=== PATIENT | female | born 1950 | race Asian ===

== ENCOUNTER 2017-12-17 04:38 | Inpatient (IN) | payer MEDICARE ==
[~2017-12-17] VITALS: Ht 144.8 cm; Wt 50.3 kg
[2017-12-17 08:00] VITALS: BP 128/68
--- NOTE | 2017-12-17 08:00 | NUR ---
TERRAZZO LAYER HELPERFIVE ROLL REFINER BATCH MIXER NOTES RECEIVED NEW ADMISSION FOR[place] [address] WITH PRIMARY DIAGNOSIS OF COLITIS..REPORT RECEIVED FROM PM NURSE.BROUGHT BY EMT IN [facility].PATIENT IS AXOX4.NO SOB NO DISTRESS NOTED AT THIS TIME.BRP.WITH STEADY GAIT.GENERALIZED WEAKNESS NOTED.IV ON RAC#20.INTACT AND PATENT.LOGISTICS PLANNER DARLIN MADE AWARE REGARDING ADMISSION.SKIN IS INTACT.BED IS IN LOW AND LOCKED POSITION.CALL LIGHT IN REACH.SRX3.WILL CONTINUE TO MONITOR.
[2017-12-17] MEDS ORDERED: LEVOFLOXACIN 500 MG /D5W 100ML 500 MG in PREMIX 1 EA IV SCH (08:30)
[2017-12-17] MEDS ORDERED: HYDROCODONE/APAP 5/325MG 1 EACH TABLET PO PRN ×2 (08:30→10:30)
[2017-12-17] MEDS ORDERED: ZOLPIDEM TARTRATE 5 MG TABLET PO PRN (08:30)
[2017-12-17] MEDS ORDERED: MAGNESIUM HYDROXIDE 30 ML UDC PO PRN (08:30)
[2017-12-17] MEDS ORDERED: MORPHINE SULFATE INJ 4 MG/ML DISP.SYRIN IV PRN (08:30)
[2017-12-17] MEDS: IV NS 0.9% 1,000 ML IV PRN ×2 (08:36→23:40)
[2017-12-17] MEDS ORDERED: VITA1TAB56 PO (08:52)
[2017-12-17] MEDS ORDERED: MULT-1200 PO (08:52)
[2017-12-17] MEDS ORDERED: METO25TA3 PO (08:52)
[2017-12-17] MEDS ORDERED: AMLO5TAB7 PO (08:52)
[2017-12-17] MEDS ORDERED: CHOL100044 PO (08:52)
[2017-12-17] MEDS ORDERED: ATOR10TA PO (08:52)
[2017-12-17] MEDS ORDERED: LEVO50TA8 PO (08:52)
[2017-12-17] MEDS ORDERED: ALEN70TA45 PO (08:52)
[2017-12-17 10:00] VITALS: BP 128/68
[2017-12-17] MEDS: ENOXAPARIN SODIUM 30 MG/0.3 ML DISP.SYRIN SQ SCH (10:57)
[2017-12-17] MEDS: LEVOFLOXACIN 750 MG /D5W 150ML 750 MG in PREMIX 1 EA IV SCH (10:57)
[2017-12-17 12:00] VITALS: BP 118/68
[2017-12-17] MEDS: ACETAMINOPHEN 325 MG TABLET PO PRN (12:40)
--- NOTE | 2017-12-17 12:40 | NUR ---
PLUGGER NOTE SEEN BY RANJEET SAEED.UPDATED PATIENT CONDITION.NOTIFIED THAT PATIENT HAS MILD TEMP.GOT NEW ORDERS.WILL CONTINUE TO MONITOR.
[2017-12-17] MEDS: METRONIDAZOLE 500MG/ NS 100ML 500 MG in PREMIX 1 EA IV SCH ×3 (12:52→23:40)
[2017-12-17 16:00] VITALS: BP 105/80
[2017-12-17] MEDS: ATORVASTATIN 10 MG TABLET PO SCH (17:37)
--- NOTE | 2017-12-17 19:23 | NUR ---
IMAGING MANAGER CLOSING NOTE PATIENT IS AXOX4.IN BED.ON RA.NO SOB NO DISTRESS NOTED AT THIS TIME.SPOKE TO DAUGHTER,UPDATED PATIENT CONDITION.HAS LOOSE BM .COLLECTED STOOL FOR C-DIFF.BED IS LOW AND IN LOCKED POSITION.CALL LIGHT IN REACH.SRX3.WILL CONTINUE TO MONITOR.
[2017-12-17 20:00] VITALS: BP 121/61
--- NOTE | 2017-12-17 20:00 | NUR ---
BAND AID MACHINE OPERATOR OPENING NOTES RECEIVED REPORT FROM ILDA BRANDON. PATIENT A/A/O X4, ABLE TO MAKE NEEDS KNOWN. BREATHING EVEN & UNLABORED, TOLERATING ROOM AIR. DENIES ANY SOB OR DIFFICULTY BREATHING. ON TELE W/ SINUS RHYTHM, HR 69. RIGHT AC IV #20 INTACT & PATENT W/ DRESSING CDI & IVF NS INFUSING WELL @ 100 ML/HR. DENIES ANY PAIN OR DISCOMFORT @ THIS TIME. SAFETY MEASURES IN PLACE W/ SIDE RAILS UP & CALL LIGHT WITHIN REACH. INSTRUCTED TO CALL FOR ASSISTANCE BUT CAN AMBULATE W/ STEADY GAIT. WILL CONTINUE TO MONITOR.
[2017-12-18] VITALS: BP 119/60
[2017-12-18 04:00] VITALS: BP 123/64
[2017-12-18] MEDS: METRONIDAZOLE 500MG/ NS 100ML 500 MG in PREMIX 1 EA IV SCH ×4 (06:06→23:51)
[2017-12-18 06:40] LABS: BASOPHILS % (AUTO) 0.1 % (0.0-2.0); EOSINOPHILS % (AUTO) 0.3 % (0.0-6.0); HEMATOCRIT 37 % (33-45); HEMOGLOBIN 12.3 g/dL (11.5-14.8); LYMPHOCYTES # (AUTO) 2.1 /CMM (0.8-4.8); LYMPHOCYTES % (AUTO) 20.1 % (20.0-44.0); MEAN CORPUSCULAR HEMOGLOBIN 32 PG (26.0-33.0); MEAN CORPUSCULAR HGB CONC 33 g/dl (31.0-36.0); MEAN CORPUSCULAR VOLUME 95 fL (82-100); MONOCYTES # (AUTO) 0.6 /CMM (0.1-1.30); MONOCYTES % (AUTO) 5.7 % (2.0-12.0); NEUTROPHILS # (AUTO) 7.9 /CMM (1.8-8.9); NEUTROPHILS % (AUTO) 73.8 % (43.0-81.0); PLATELET COUNT (AUTO) 300 /CMM (150-450); RDW COEFFICIENT OF VARIATION 12.9 (11.5-15.0); RED BLOOD CELL COUNT(AUTO) 3.91 MIL/uL (4.0-5.2); WHITE BLOOD COUNT (AUTO) 10.6 K/uL (4.3-11.0)
[2017-12-18 06:53] LABS: CALCIUM, SERUM 7.7 mg/dL (8.5-10.1); CREATININE 0.8 mg/dL (0.6-1.3); MAGNESIUM 1.5 mg/dL (1.8-2.4); PHOSPHORUS 1.8 mg/dL (2.5-4.9); POTASSIUM 2.9 mmol/L (3.5-5.1)
--- NOTE | 2017-12-18 07:10 | NUR ---
TELE/RN INITIAL NOTES RECEIVED PT IN BED. A/OX4. TOLERATING ROOM AIR WELL, NO SOB NOTED. SR ON TELEMONITOR. WITH ONGOING IVF NS @100 ML/HR INFUSING WELL ON RAC G20. IV LINE INTACT AND PATENT. PT C/O ABDOMINAL PAIN WITH PAIN SCALE OF 4/10. WILL ADMINISTER PRN MEDS. HOB ELEVATED. SAFETY MEASURES IN PLACED. NO BM AT THIS TIME. CALL LIGHT WITHIN REACH. WILL CONT TO MONITOR.
[2017-12-18] MEDS ORDERED: ALENDRONATE 70 MG TABLET PO SCH (07:30)
[2017-12-18] MEDS: LEVOTHYROXINE SODIUM 50 MCG TABLET PO SCH (07:40)
[2017-12-18 08:00] VITALS: BP 103/76
[2017-12-18] MEDS: MULTIVITAMINS,THERAGRAN 1 UDTAB TABLET PO SCH (08:27)
[2017-12-18] MEDS: VITAMIN B COMP W-C 1 TAB TABLET PO SCH (08:27)
[2017-12-18] MEDS: METOPROLOL SUCCINATE 25 MG TAB.SR.24H PO SCH (08:27)
[2017-12-18] MEDS: ENOXAPARIN SODIUM 30 MG/0.3 ML DISP.SYRIN SQ SCH (08:27)
[2017-12-18] MEDS: CHOLECALCIFEROL 1,000 UNIT TABLET (VIT D3) PO SCH (08:27)
[2017-12-18] MEDS: AMLODIPINE BESYLATE 5 MG TABLET PO SCH (08:27)
[2017-12-18] MEDS: ACETAMINOPHEN 325 MG TABLET PO PRN (08:30)
[2017-12-18] MEDS: Magnesium 1GM/D5W 100ML PREMIX 100 ML IV SCH ×2 (10:16→11:21)
[2017-12-18] MEDS: POTASSIUM CHLORIDE 20 MEQ POWDER PACKET GT SCH ×3 (10:16→12:24)
[2017-12-18 12:00] VITALS: BP 116/55
--- NOTE | 2017-12-18 12:47 | NUR ---
RN NOTES CLARIFIED WITH ENVIRONMENTAL COMPLIANCE MANAGER JEIMY IF STILL WANT TO GIVE 40 MEQS KDUR AFTER PHARMACIST'S ORDER OF 60 MEQS. PER ENVIRONMENTAL COMPLIANCE MANAGER OK TO DC ORDER 40 MEQS KDUR
[2017-12-18] MEDS ORDERED: POTASSIUM CHLORIDE 20 MEQ TAB.PRT.SR PO ONE (13:00)
[2017-12-18] MEDS ORDERED: K PHOS NEUTRAL 250 MG TABLET PO ONE (13:00)
[2017-12-18] MEDS: ONDANSETRON HCL/PF 4 MG/2 ML VIAL IVP PRN (13:53)
[2017-12-18] MEDS: PANTOPRAZOLE 40 MG VIAL IV SCH (15:05)
[2017-12-18] MEDS: IV NS 0.9% 1,000 ML IV PRN (15:47)
--- NOTE | 2017-12-18 15:52 | NUR ---
RN NOTES PT IN STABLE CONDITION. REPORT GIVEN TO ROMA GALAN FOR GURU
[2017-12-18 16:00] VITALS: BP 97/50
[2017-12-18] MEDS: ATORVASTATIN 10 MG TABLET PO SCH (18:37)
--- NOTE | 2017-12-18 19:37 | NUR ---
HANDOFF TO NIGHT ZAKIYA COLEY RN. Addendum: 12/18/17 at 1 by ADAMA LITTLE RN STARLA TERRAZAS RN
[2017-12-18 20:00] VITALS: BP 107/61
--- NOTE | 2017-12-18 20:16 | NUR ---
FASHION PATTERNMAKER OPENING NOTES RECEIVED REPORT FROM ADAMA BRANDON. PATIENT A/A/O X4, ABLE TO MAKE NEEDS KNOWN. BREATHING EVEN & UNLABORED, TOLERATING ROOM AIR. DENIES ANY SOB OR DIFFICULTY BREATHING. RADIAL PULSES PRESENT & BOUNDING. RIGHT AC IV #20 INTACT & PATENT W/ DRESSING CDI & IVF NS INFUSING WELL @ 100 ML/HR. DENIES ANY PAIN OR DISCOMFORT @ THIS TIME. SAFETY MEASURES IN PLACE W/ SIDE RAILS UP & CALL LIGHT WITHIN REACH. INSTRUCTED TO CALL FOR ASSISTANCE BUT CAN AMBULATE W/ STEADY GAIT. WILL CONTINUE TO MONITOR.
[2017-12-19] VITALS: BP 105/45
[2017-12-19 04:00] VITALS: BP 114/69
[2017-12-19] MEDS: METRONIDAZOLE 500MG/ NS 100ML 500 MG in PREMIX 1 EA IV SCH ×2 (05:24→13:14)
[2017-12-19 06:34] LABS: BASOPHILS % (AUTO) 0.6 % (0.0-2.0); HEMATOCRIT 38 % (33-45); HEMOGLOBIN 12.5 g/dL (11.5-14.8); LYMPHOCYTES # (AUTO) 2.9 /CMM (0.8-4.8); LYMPHOCYTES % (AUTO) 48.3 % (20.0-44.0); MEAN CORPUSCULAR HEMOGLOBIN 32 PG (26.0-33.0); MEAN CORPUSCULAR HGB CONC 33 g/dl (31.0-36.0); MEAN CORPUSCULAR VOLUME 95 fL (82-100); MONOCYTES # (AUTO) 0.7 /CMM (0.1-1.30); MONOCYTES % (AUTO) 10.9 % (2.0-12.0); NEUTROPHILS # (AUTO) 2.2 /CMM (1.8-8.9); NEUTROPHILS % (AUTO) 36.2 % (43.0-81.0); PLATELET COUNT (AUTO) 287 /CMM (150-450); RDW COEFFICIENT OF VARIATION 13.3 (11.5-15.0); RED BLOOD CELL COUNT(AUTO) 3.97 MIL/uL (4.0-5.2)
[2017-12-19 06:59] LABS: CALCIUM, SERUM 8.1 mg/dL (8.5-10.1); CREATININE 0.9 mg/dL (0.6-1.3); MAGNESIUM 2.1 mg/dL (1.8-2.4); PHOSPHORUS 2.5 mg/dL (2.5-4.9); POTASSIUM 3.3 mmol/L (3.5-5.1)
--- NOTE | 2017-12-19 07:15 | NUR ---
M/S INITIAL RN NOTES PT AMBULATING TO THE BR. STEADY GAIT NOTED. CLEAR BREATH SOUNDS THROUGHOUT LUNGS. BOWEL SOUNDS ACTIVE. IV FLUIDS RUNNING THROUGH PATENT IV. NO S/SX OF INFECTION. PT IS A/OX4. NOT IN PAIN. ON ROOM AIR. NO DISTRESS NOTED. PT IS CONCERNED WITH D/C TODAY. WILL CONT TO MONITOR.
[2017-12-19] MEDS: LEVOTHYROXINE SODIUM 50 MCG TABLET PO SCH (07:47)
[2017-12-19 08:00] VITALS: BP 109/55
[2017-12-19] MEDS: METOPROLOL SUCCINATE 25 MG TAB.SR.24H PO SCH (09:00)
[2017-12-19] MEDS: VITAMIN B COMP W-C 1 TAB TABLET PO SCH (09:43)
[2017-12-19] MEDS: MULTIVITAMINS,THERAGRAN 1 UDTAB TABLET PO SCH (09:43)
[2017-12-19] MEDS: CHOLECALCIFEROL 1,000 UNIT TABLET (VIT D3) PO SCH (09:43)
[2017-12-19] MEDS: ENOXAPARIN SODIUM 30 MG/0.3 ML DISP.SYRIN SQ SCH (09:52)
[2017-12-19] MEDS: AMLODIPINE BESYLATE 5 MG TABLET PO SCH (10:02)
[2017-12-19] MEDS: LEVOFLOXACIN 750 MG /D5W 150ML 750 MG in PREMIX 1 EA IV SCH (10:05)
--- NOTE | 2017-12-19 10:37 | NUR ---
MS RN NOTE: INFORMED RANJEET SAEED THAT PER PATIENT'S REQUEST SHE DOES NOT WANT HER IV FLUID ANY MORE. PATIENT WAS DRINKING AND EATING WELL. DENIED ANY NAUSEA AND VOMITING AND NO ABDOMINAL PAIN NOTED. PER DARLIN, IT'S OK TO DC THE IV FLUID. NOTED AND CARRIED OUT. PATIENT MADE AWARE.
[2017-12-19] MEDS ORDERED: POTASSIUM CHLORIDE 20 MEQ TAB.PRT.SR PO SCH (11:00)
[2017-12-19] MEDS: ONDANSETRON HCL/PF 4 MG/2 ML VIAL IVP PRN ×3 (11:55→13:22)
[2017-12-19 12:00] VITALS: BP 119/66
[2017-12-19] MEDS: ACETAMINOPHEN 325 MG TABLET PO PRN (12:00)
[2017-12-19] MEDS ORDERED: METR500T PO (12:52)
[2017-12-19] MEDS ORDERED: LEVO750T21 PO (12:52)
--- NOTE | 2017-12-19 13:11 | NUR ---
M/S RN NOTES DARLIN DUNGEON MASTER ROUNDING WITH PATIENT.
[2017-12-19] MEDS: PANTOPRAZOLE 40 MG VIAL IV SCH (15:00)
--- NOTE | 2017-12-19 16:02 | NUR ---
M/S D/C RN NOTES PATIENT WALKED OFF UNIT WITH NIECE ACCOMPANYING. ID BAND REMOVED. IV CATH REMOVED WITH NO S/SX OF INFECTION. DISCHARGE INSTRUCTIONS AND BELONGINGS LIST SIGNED FOR. PRESCRIPTIONS GIVEN. LAST VS RECORDED. ALL NEEDS ATTENDED TO.
== END 2017-12-19 16:05 | disposition home or self-care (01) | DRG 872 ==
LOC: TELE1 07:07 → MEDSG1 12-18 16:16
PROVIDERS: ADMIT Internal Medicine; ATTEND Internal Medicine
DX: A41.9 Sepsis, unspecified organism (principal); K52.9 Noninfective gastroenteritis and colitis, unspecified; E78.5 Hyperlipidemia, unspecified; E03.9 Hypothyroidism, unspecified; I10 Essential (primary) hypertension
CPT/HCPCS: 36415; 80048-TC; 80061-TC; 83735-TC; 84100-TC; 85025-TC; 87081-TC; A4216; C9113; J1650; J1956; J2405; J3475; J3490; J7030; Z7610

== ENCOUNTER 2017-12-20 13:21 | Outpatient (CLI) | payer MEDICARE ==
[~2017-12-20 13:21] MED LIST: ALEN70TA45 PO; AMLO5TAB7 PO; ATOR10TA PO; CHOL100044 PO; LEVO50TA8 PO; LEVO750T21 PO; METO25TA3 PO; METR500T PO; MULT-1200 PO; VITA1TAB56 PO
[2017-12-20 13:50] VITALS: BP 134/72
== END 2017-12-20 23:59 | disposition home or self-care (01) ==
LOC: MSC 13:21
PROVIDERS: ATTEND Internal Medicine
DX: Z51.89 Encounter for other specified aftercare (principal); K52.9 Noninfective gastroenteritis and colitis, unspecified; E03.9 Hypothyroidism, unspecified; E78.5 Hyperlipidemia, unspecified; I10 Essential (primary) hypertension